=== PATIENT | female | born 1990 | race Caucasian/White ===

== ENCOUNTER 2018-08-17 09:39 | Emergency (ER) | payer OTHER | END 2018-08-17 10:50 | disposition home or self-care (01) | LOC: FTE 09:39 | DX: K11.20 Sialoadenitis, unspecified (principal); H10.021 Other mucopurulent conjunctivitis, right eye | CPT/HCPCS: 99283; Z7502 ==

== ENCOUNTER 2019-01-22 19:06 | Emergency (ER) | payer SELFPAY, OTHER ==
[2019-01-22] MEDS: HYDROCODONE/APAP (5/325) TAB PO (19:38)
[2019-01-22] MEDS: BACITRACIN 0.9 GM OINT TOP (19:38)
== END 2019-01-22 20:59 | disposition home or self-care (01) ==
LOC: FTE 20:59
DX: S51.811A Laceration without foreign body of right forearm, initial encounter (principal); W54.0XXA Bitten by dog, initial encounter; Y92.9 Unspecified place or not applicable
CPT/HCPCS: 73090; 73090-RT; 81025; 99283-25

== ENCOUNTER 2019-03-23 21:23 | Emergency (ER) | payer SELFPAY | END 2019-03-24 00:28 | disposition home or self-care (01) | LOC: FTE 21:23 | DX: J01.90 Acute sinusitis, unspecified (principal); R11.0 Nausea | CPT/HCPCS: 99283 ==